=== PATIENT | female | born 1960 | race Two or more races ===

== ENCOUNTER 2018-01-12 14:35 | Emergency (ER) | payer SELFPAY ==
[~2018-01-12] VITALS: Ht 157.5 cm; Wt 93.0 kg
[2018-01-12 14:46] VITALS: BP 134/70
== END 2018-01-12 15:24 | disposition home or self-care (01) ==
LOC: ER 14:38
DX: M54.9 Dorsalgia, unspecified (principal); R11.0 Nausea; I10 Essential (primary) hypertension; E11.9 Type 2 diabetes mellitus without complications; V43.53XA Car driver injured in collision with pick-up truck in traffic accident, initial encounter; Y93.89 Activity, other specified; Y92.413 State road as the place of occurrence of the external cause; Y99.8 Other external cause status
CPT/HCPCS: 99283; A4606; Z7610